=== PATIENT | female | born 1955 | race Caucasian/White ===

== ENCOUNTER 2017-05-25 20:21 | Emergency (ER) | payer BC ==
--- NOTE | 2017-05-25 22:09 | NUR ---
TRIED TO GO GET PT FOR HER CT HEAD 3 TIMES NOW. PT STILL NOT READY PER RN. ORDERING M.Jerod. NOTIFIED.
[2017-05-25 22:20] LABS: AMORPHOUS SEDIMENT >1+ /lpf (NONE SEEN); APPEARANCE CLOUDY (CLEAR); BACTERIA MODERATE /hpf (NONE SEEN); BILIRUBIN NEGATIVE (NEGATIVE); COLOR DK YELLOW (YELLOW); GLUCOSE 1000 mg/dL (NEGATIVE); KETONE NEGATIVE (NEGATIVE); MUCUS <1+ /lpf (NONE SEEN); NITRITE NEGATIVE (NEGATIVE); PROTEIN 2+ mg/dL (NEGATIVE); RED CELLS - URINE 0-5 /hpf (0-5); SPECIFIC GRAVITY 1.025 (1.005-1.020); UROBILINOGEN NORMAL (NORMAL); WHITE CELLS - URINE 0-5 /hpf (0-5)
[2017-05-25 23:37] LABS: BASOPHILS 0.1 % (0-2); EOSINOPHILS 0 % (0-7); HEMATOCRIT 50.1 % (36.0-48.0); HEMOGLOBIN 16.6 g/dL (12-16); IMMATURE GRANULOCYTES 1.6 % (0-5); LYMPHOCYTES 3.7 % (15-50); MCH 26.2 pg (26.0-34.0); MCHC 33.1 g/dL (31.0-37.0); MCV 79.1 fL (80.0-100.0); MONOCYTES 2.8 % (2-11); NEUTROPHILS 91.8 % (40-80); RBC 6.33 10x6/uL (4.00-5.40); RDW 13.5 % (11.5-14.5); WBC 10.5 10x3/uL (4.8-10.8)
[2017-05-25 23:38] LABS: PLATELET COUNT 25 10x3/uL (130-400)
[2017-05-25 23:49] LABS: INR 1.12 (0.85-1.17)
[2017-05-26 00:04] LABS: ALBUMIN 2.8 g/dL (3.4-5.0); ANION GAP 22.3 mmol/L (8-16); BILIRUBIN - TOTAL 1.32 mg/dL (0.2-1.3); CALCIUM 8.5 mg/dL (8.5-10.1); CARBON DIOXIDE 17.3 mmol/L (21.0-32.0); CREATININE - SERUM 2.1 mg/dL (0.6-1.3); MAGNESIUM - SERUM 1.6 mg/dL (1.8-2.4); POTASSIUM - SERUM 3.6 mmol/L (3.5-5.1); PROTEIN - SERUM 7.8 g/dL (6.4-8.2)
[2017-05-26 00:33] LABS: PLATELET ESTIMATE DECREASED
== END 2017-05-26 02:43 | disposition other institution (70) ==
LOC: D.ER 20:21
PROVIDERS: Family Medicine; Nurse Practitioner Family
DX: R41.82 Altered mental status, unspecified (principal); R50.9 Fever, unspecified; I95.9 Hypotension, unspecified; I63.9 Cerebral infarction, unspecified; R74.0 Nonspecific elevation of levels of transaminase and lactic acid dehydrogenase [LDH]; N17.9 Acute kidney failure, unspecified; E11.65 Type 2 diabetes mellitus with hyperglycemia; D69.6 Thrombocytopenia, unspecified